=== PATIENT | male | born 1970 | race African-American/Black ===

== ENCOUNTER 2017-09-17 11:25 | Emergency (ER) | payer OTHER ==
[~2017-09-17] VITALS: Ht 188 cm; Wt 129.6 kg
[~2017-09-17 11:25] MED LIST: FLEXERIL10 MG PO; NAPROSYN500 MG PO; ULTRAM50 MG PO
[2017-09-17] MEDS ORDERED: NAPROSYN500 MG PO (12:23)
[2017-09-17] MEDS ORDERED: FLEXERIL10 MG PO (12:23)
[2017-09-17 12:26] VITALS: BP 142/98
== END 2017-09-17 12:42 | disposition home or self-care (01) ==
LOC: EME 11:25
DX: S20.219A Contusion of unspecified front wall of thorax, initial encounter (principal); F17.200 Nicotine dependence, unspecified, uncomplicated; V49.40XA Driver injured in collision with unspecified motor vehicles in traffic accident, initial encounter; Y92.410 Unspecified street and highway as the place of occurrence of the external cause
CPT/HCPCS: 71020; 99281; 99283